=== PATIENT | male | born 1985 | race Caucasian/White ===

== ENCOUNTER 2017-01-06 20:01 | Emergency (ER) | payer SELFPAY ==
--- NOTE | 2017-01-06 20:50 | ED Physician Documentation ---
History of Present Illness - Stated complaint Stated Complaint: N/V/UPSET STOMACH - Chief complaint Chief Complaint: General - History obtained from History obtained from: Patient - History of Present Illness Timing: How many hours ago (2) Pain level max: 0 Pain level now: 0 Improved by: no ameliorating factors Worsened by: no apparent inciting or exacerbating factors - Additonal information Additional information: while driving to work approximately 2 hours [employer]UNGER [employer], patient had rapid onset of difficulty breathing, lightheadedness, nausea without vomiting. He has had improvement of his symptoms without complete resolution (although dyspnea has resolved) Review of Systems Constitutional: denies: Fever, Chills, Sweats Eyes: reports: Reviewed and negative Cardiac: reports: Reviewed and negative Respiratory: reports: Dyspnea (resolved) GI: denies: Abdominal Pain Neurologic: denies: Generalized weakness, Focal weakness, Numbness, Headache PD PAST MEDICAL HISTORY - Past Medical History Cardiovascular: Hypertension, High cholesterol - Past Surgical History Past Surgical History: No - Present Medications Home Medications: Ambulatory Orders Medication Instructions Recorded Confirmed Lisinopril [Zestril] 10 mg PO DAILY 01/06/17 01/06/17 [place]-3 Acid Ethyl Esters [Lovaza] 3 cap PO DAILY 01/06/17 01/06/17 Ondansetron Odt [Zofran] 4 mg TL Q6H PRN #10 tablet 01/06/17 - Allergies Allergies/Adverse Reactions: Allergies Allergy/AdvReac Type Severity Reaction Status Date / Time No Known Drug Allergies Allergy Verified 01/06/17 20:11 - Social History Does the pt smoke?: No Smoking Status: Never smoker Does the pt drink ETOH?: No Does the pt have substance abuse?: No - Immunizations Immunizations are current?: No - POLST Patient has POLST: No PD ED PE NORMAL - Vitals Vital signs reviewed: Yes - General General: Alert and oriented X 3, Well developed/nourished, Other (appears ) - HEENT HEENT: PERRL, EOMI, Moist mucous membranes - Cardiac Cardiac: RRR, No murmur - Respiratory Respiratory: No respiratory distress, Clear bilaterally - Abdomen Abdomen: Soft, Non tender - Derm Derm: Normal color, Warm and dry - Neuro Neuro: Alert and oriented X 3, 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, No motor deficit, No sensory deficit, Normal speech Results - Vitals Vitals: Vital Signs - 24 hr 07/12/17 07/12/17 20:10 23:34 Temperature 36 C L 36.6 C Heart Rate 67 71 Respiratory 16 14 Rate Blood Pressure 133/96 H 123/81 H O2 Saturation 99 100 Oxygen O2 Source Room air - Labs Labs: Laboratory Tests 01/06/17 01/06/17 01/06/17 20:42 21:07 21:07 WBC 13.6 H RBC 6.31 H Hgb 17.0 Hct 51.6 MCV 81.8 MCH 26.9 L MCHC 32.9 RDW 14.0 Plt Count 248 MPV 9.5 Neut # 11.2 H Lymph # 1.7 Robertson # 0.7 Eos # 0.0 Baso # 0.0 Absolute Nucleated RBC 0.01 Nucleated RBCs 0.0 Sodium 135 Potassium 3.7 Chloride 99 L Carbon Dioxide 26 Anion Gap 10.0 BUN 18 Creatinine 1.5 H Estimated GFR (MDRD) 55 L Glucose 120 H POC Whole Bld Glucose 118 H Calcium 9.4 PD MEDICAL DECISION MAKING - ED course Complexity details: reviewed results, re-evaluated patient, considered differential, d/w patient, d/w family Departure - Departure Disposition: 01 Home, Self Care Clinical Impression: Nausea, Muscle weakness Condition: Good Instructions: ED Nausea Vomiting, ED Weakness UKO Prescriptions: Ondansetron Odt [Zofran] 4 mg TL Q6H PRN #10 tablet PRN Reason: Nausea / Vomiting Comments: Contact your primary care physician to arrange for next available appointment Forms: Activity restrictions Discharge Date/Time: 01/06/17 23:34
[2017-01-06] MEDS ORDERED: ONDANSETRON 4 MG/2 ML VIAL IVP STA (21:08)
[2017-01-06] MEDS ORDERED: SODIUM CHLORIDE 0.9% 1,000 ML IV STA (21:08)
[2017-01-06] MEDS ORDERED: ONDANSETRON 4 MG/2 ML VIAL ONE (21:19)
[2017-01-06 21:25] LABS: BASOPHILS % (AUTO) 0.3 %; EOSINOPHILS % (AUTO) 0.3 %; HCT - HEMATOCRIT 51.6 % (42.0-52.0); LYMPHOCYTES # (AUTO) 1.7 10^3/uL (1.5-3.5); LYMPHOCYTES % (AUTO) 12.4 %; MEAN CORPUSCULAR HEMOGLOBIN 26.9 pg (27.0-31.0); MEAN CORPUSCULAR HGB CONC 32.9 g/dL (32.0-36.0); MEAN CORPUSCULAR VOLUME 81.8 fL (80.0-94.0); MEAN PLATELET VOLUME 9.5 fL (7.4-11.4); MONOCYTES # (AUTO) 0.7 10^3/uL (0.0-1.0); MONOCYTES % (AUTO) 4.9 %; NEUTROPHILS # (AUTO) 11.2 10^3/uL (1.5-6.6); NEUTROPHILS % (AUTO) 82.1 %; RED BLOOD COUNT 6.31 10^6/uL (4.70-6.10); UNCORRECTED WHITE BLOOD COUNT 13.6 x10^3/uL; WHITE BLOOD COUNT 13.6 x10^3/uL (4.8-10.8)
[2017-01-06 21:37] LABS: CALCIUM 9.4 mg/dL (8.5-10.3); CREATININE 1.5 mg/dL (0.6-1.2); POTASSIUM 3.7 mmol/L (3.5-5.0)
[2017-01-06 23:40] VITALS: BP 123/81
== END 2017-01-06 23:34 | disposition home or self-care (01) ==
LOC: ED 20:01
DX: R11.0 Nausea (principal); M62.81 Muscle weakness (generalized); I10 Essential (primary) hypertension
CPT/HCPCS: 36415; 80048; 85025; 96361; 96374; 99283; 99284